=== PATIENT | male | born 1990 | race Two or more races ===

== ENCOUNTER 2018-07-09 15:56 | Emergency (ER) | payer SELFPAY ==
[~2018-07-09] VITALS: Ht 172.7 cm; Wt 78.0 kg
[2018-07-09 16:10] VITALS: BP 0/0
== END 2018-07-09 16:14 | disposition left against medical advice (07) ==
LOC: ER 15:56
DX: Z53.21 Procedure and treatment not carried out due to patient leaving prior to being seen by health care provider (principal)